=== PATIENT | male | born 1990 | race Two or more races ===

== ENCOUNTER 2018-01-20 19:29 | Inpatient (IN) | payer OTHER ==
[2018-01-20 21:40] LABS: ADD MAN DIFF? NO
[2018-01-20] MEDS: METHYLPREDNISOLONE 125 MG INJ IV (21:40)
[2018-01-20] MEDS: SOD CHLORIDE 0.9% 500 ML IV (21:40)
[2018-01-20 21:45] LABS: WHITE BLOOD COUNT 5.2 10^3/ul (4.8-10.8)
[2018-01-20 21:45] LABS: BASOPHILS % 0.6 % (0.0-2.0); EOSINOPHILS # 0.4 10^3/ul (0.0-0.5); EOSINOPHILS % 8.3 % (0.0-7.0); HEMATOCRIT 50.2 % (42.0-52.0); LYMPHOCYTES # 2.4 10^3/ul (0.8-2.9); LYMPHOCYTES % 46.2 % (15.0-51.0); MEAN CORPUSCULAR HGB CONC 33.9 g/dl (32.0-37.0); MEAN CORPUSCULAR VOLUME 94.5 fl (82.0-101.0); MEAN PLATELET VOLUME 11.4 fl (7.4-10.4); MONOCYTE # 0.5 10^3/ul (0.3-0.9); MONOCYTES % 9.8 % (0.0-11.0); NEUTROPHIL # 1.8 10^3/ul (1.6-7.5); NEUTROPHILS % 34.9 % (39.0-77.0); PLATELET COUNT 210 10^3/UL (140-415); RED BLOOD COUNT 5.31 10^6/ul (4.70-6.10); RED CELL DISTRIBUTION WIDTH 12.5 % (11.5-14.5)
[2018-01-20 21:59] LABS: ALANINE AMINOTRANSFERASE 17 IU/L (13-69); ALBUMIN 4.7 g/dl (3.3-4.9); ALBUMIN/GLOBULIN RATIO 1.06; ALKALINE PHOSPHATASE 98 IU/L (42-121); ANION GAP 11 (5-13); ASPARTATE AMINO TRANSFERASE 27 IU/L (15-46); BILIRUBIN,INDIRECT 0.6 mg/dl (0-1.1); BILIRUBIN,TOTAL 0.6 mg/dl (0.2-1.3); BLOOD UREA NITROGEN 21 mg/dl (7-20); CALCIUM 9.6 mg/dl (8.4-10.2); CARBON DIOXIDE 29 mmol/L (21-31); CHLORIDE 101 mmol/L (97-110); CREATININE 0.78 mg/dl (0.61-1.24); Estimated GFR > 60 mL/min (>60); GLUCOSE 90 mg/dl (70-220); LIPASE 118 U/L (23-300); POTASSIUM 3.9 mmol/L (3.5-5.1); SODIUM 141 mmol/L (135-144); TOTAL PROTEIN 9.1 g/dl (6.1-8.1)
[2018-01-20] MEDS ORDERED: DOCUSATE SODIUM 100 MG CAP PO (22:00)
[2018-01-20] MEDS ORDERED: NACL 0.9% 3 ML SYG IV (22:00)
[2018-01-20] MEDS ORDERED: BISACODYL (EC) 5 MG TAB PO (22:00)
[2018-01-20] MEDS: PANTOPRAZOLE (EC) 40 MG TAB PO (22:00)
[2018-01-20] MEDS ORDERED: ONDANSETRON 4 MG INJ IV (22:00)
[2018-01-20] MEDS: METHYLPRED. NA SUCC 1,000 MG in DEXTROSE 5% 50 ML IVPB (22:59)
[2018-01-21] MEDS: PANTOPRAZOLE (EC) 40 MG TAB PO (05:44)
[2018-01-21 06:21] LABS: ABNORMAL IP MESSAGE 1; HEMATOCRIT 44.9 % (42.0-52.0); HEMOGLOBIN 15.3 g/dl (14.0-18.0); MEAN CORPUSCULAR HEMOGLOBIN 31.9 pg (29.0-33.0); MEAN CORPUSCULAR HGB CONC 34.1 g/dl (32.0-37.0); MEAN CORPUSCULAR VOLUME 93.5 fl (82.0-101.0); MEAN PLATELET VOLUME 11.6 fl (7.4-10.4); PLATELET COUNT 181 10^3/UL (140-415); POSITIVE DIFF @See below; RED CELL DISTRIBUTION WIDTH 12.5 % (11.5-14.5)
[2018-01-21 06:21] LABS: WHITE BLOOD COUNT 2.6 10^3/ul (4.8-10.8)
[2018-01-21 06:25] LABS: ADD MAN DIFF? YES
[2018-01-21 07:05] LABS: ALANINE AMINOTRANSFERASE 20 IU/L (13-69); ALBUMIN 4.2 g/dl (3.3-4.9); ALBUMIN/GLOBULIN RATIO 1.23; ALKALINE PHOSPHATASE 79 IU/L (42-121); ANION GAP 8 (5-13); ASPARTATE AMINO TRANSFERASE 23 IU/L (15-46); BILIRUBIN,INDIRECT 0.5 mg/dl (0-1.1); BILIRUBIN,TOTAL 0.5 mg/dl (0.2-1.3); BLOOD UREA NITROGEN 14 mg/dl (7-20); CALCIUM 9.6 mg/dl (8.4-10.2); CARBON DIOXIDE 28 mmol/L (21-31); CHLORIDE 104 mmol/L (97-110); CHOL/HDL RATIO 4.8 RATIO; CHOLESTEROL 156 mg/dl (100-200); CREATININE 0.72 mg/dl (0.61-1.24); Estimated GFR > 60 mL/min (>60); GLUCOSE 148 mg/dl (70-220); HDL CHOLESTEROL 32 mg/dl (28-63); LDL CHOLESTEROL,CALCULATED 120 mg/dl; POTASSIUM 5.5 mmol/L (3.5-5.1); SODIUM 140 mmol/L (135-144); TOTAL PROTEIN 7.6 g/dl (6.1-8.1); TRIGLYCERIDES 18 mg/dl (0-149)
[2018-01-21 08:16] LABS: THYROID STIMULATING HORMONE 0.281 MIU/L (0.465-4.680)
[2018-01-21] MEDS: METHYLPRED. NA SUCC 1,000 MG in DEXTROSE 5% 50 ML IVPB (08:37)
[2018-01-21] MEDS: ENOXAPARIN 40 MG/0.4 ML SYG SC (08:55)
[2018-01-21 10:14] LABS: BAND NEUTROPHILS #M 0.3 10^3/ul (0.0-0.6); BAND NEUTROPHILS % (M) 15 % (0-4); BURR CELLS 1+ (0-0); LYMPHOCYTES #M 0.3 10^3/ul (0.8-2.9); LYMPHOCYTES % (M) 13 % (15-51); MONOCYTES % (M) 3 % (0-11); PLATELET ESTIMATE NORMAL; POLYCHROMASIA 1+ (0-0); REACTIVE LYMPHOCYTES% (M) 1 % (0-0); SEG NEUT #M 1.8 10^3/ul (1.6-7.5); SEGMENTED NEUTROPHILS (M) % 68 % (39-77); SMUDGE%M 3 % (0-0)
[2018-01-21 11:16] LABS: HEMOGLOBIN A1C 4.8 % (0-5.9)
[2018-01-21 12:03] LABS: FREE T4 (FREE THYROXINE) 1.26 ng/dl (0.79-2.35)
[2018-01-21] MEDS: ACETAMINOPHEN 325 MG TAB PO (13:43)
[2018-01-21] MEDS: DOCUSATE SODIUM 100 MG CAP PO (21:39)
[2018-01-21] MEDS: LORAZEPAM 2 MG INJ IV (23:57)
[2018-01-22] MEDS: PANTOPRAZOLE (EC) 40 MG TAB PO (05:58)
[2018-01-22 06:31] LABS: ADD MAN DIFF? NO
[2018-01-22 06:38] LABS: BASOPHILS % 0.1 % (0.0-2.0); HEMATOCRIT 42.9 % (42.0-52.0); HEMOGLOBIN 14.5 g/dl (14.0-18.0); LYMPHOCYTES # 0.9 10^3/ul (0.8-2.9); LYMPHOCYTES % 10.5 % (15.0-51.0); MEAN CORPUSCULAR HEMOGLOBIN 32.1 pg (29.0-33.0); MEAN CORPUSCULAR HGB CONC 33.8 g/dl (32.0-37.0); MEAN CORPUSCULAR VOLUME 94.9 fl (82.0-101.0); MEAN PLATELET VOLUME 11.8 fl (7.4-10.4); MONOCYTE # 1.1 10^3/ul (0.3-0.9); MONOCYTES % 12.3 % (0.0-11.0); NEUTROPHIL # 6.7 10^3/ul (1.6-7.5); NEUTROPHILS % 76.6 % (39.0-77.0); PLATELET COUNT 185 10^3/UL (140-415); RED BLOOD COUNT 4.52 10^6/ul (4.70-6.10); RED CELL DISTRIBUTION WIDTH 12.7 % (11.5-14.5)
[2018-01-22 06:38] LABS: WHITE BLOOD COUNT 8.7 10^3/ul (4.8-10.8)
[2018-01-22 07:15] LABS: ANION GAP 8 (5-13); BLOOD UREA NITROGEN 21 mg/dl (7-20); CALCIUM 9.5 mg/dl (8.4-10.2); CARBON DIOXIDE 27 mmol/L (21-31); CHLORIDE 105 mmol/L (97-110); CREATININE 0.73 mg/dl (0.61-1.24); Estimated GFR > 60 mL/min (>60); GLUCOSE 118 mg/dl (70-220); MAGNESIUM 2.1 mg/dl (1.7-2.5); POTASSIUM 4.3 mmol/L (3.5-5.1); SODIUM 140 mmol/L (135-144)
[2018-01-22] MEDS: DOCUSATE SODIUM 100 MG CAP PO ×2 (09:11→22:09)
[2018-01-22] MEDS: ENOXAPARIN 40 MG/0.4 ML SYG SC (09:55)
[2018-01-22 10:30] LABS: ADD UMIC NO; UR ASCORBIC ACID 40 mg/dL (NEGATIVE); UR BILIRUBIN (Dip) NEGATIVE (NEGATIVE); UR BLOOD (Dip) NEGATIVE (NEGATIVE); UR CLARITY CLEAR (CLEAR); UR COLOR YELLOW (YELLOW); UR GLUCOSE (Dip) NEGATIVE (NEGATIVE); UR KETONES (Dip) NEGATIVE (NEGATIVE); UR LEUKOCYTE ESTERASE (Dip) NEGATIVE Leu/ul (NEGATIVE); UR NITRITE (Dip) NEGATIVE (NEGATIVE); UR SPECIFIC GRAVITY (Dip) 1.033 (1.003-1.030); UR TOTAL PROTEIN (Dip) NEGATIVE (NEGATIVE); UR UROBILINOGEN (Dip) NEGATIVE (NEGATIVE)
[2018-01-22] MEDS: METHYLPRED. NA SUCC 1,000 MG in DEXTROSE 5% 50 ML IVPB (10:59)
[2018-01-22 11:09] LABS: AMPHETAMINE/METHAMPHETAMINE NEGATIVE (NEGATIVE); BARBITURATES NEGATIVE (NEGATIVE); BENZODIAZEPINES NEGATIVE (NEGATIVE); CANNABINOIDS NEGATIVE (NEGATIVE); COCAINE NEGATIVE (NEGATIVE); OPIATES NEGATIVE (NEGATIVE)
[2018-01-23] MEDS: PANTOPRAZOLE (EC) 40 MG TAB PO (05:41)
[2018-01-23 06:57] LABS: ADD MAN DIFF? NO
[2018-01-23 07:07] LABS: HEMOGLOBIN 14.8 g/dl (14.0-18.0); LYMPHOCYTES # 0.7 10^3/ul (0.8-2.9); MEAN CORPUSCULAR HEMOGLOBIN 31.8 pg (29.0-33.0); MEAN CORPUSCULAR HGB CONC 33.6 g/dl (32.0-37.0); MEAN CORPUSCULAR VOLUME 94.4 fl (82.0-101.0); MONOCYTE # 0.8 10^3/ul (0.3-0.9); MONOCYTES % 9.1 % (0.0-11.0); NEUTROPHIL # 7.4 10^3/ul (1.6-7.5); NEUTROPHILS % 82.5 % (39.0-77.0); PLATELET COUNT 186 10^3/UL (140-415); RED BLOOD COUNT 4.66 10^6/ul (4.70-6.10); RED CELL DISTRIBUTION WIDTH 12.5 % (11.5-14.5)
[2018-01-23 07:33] LABS: ANION GAP 11 (5-13); BLOOD UREA NITROGEN 23 mg/dl (7-20); CALCIUM 9.4 mg/dl (8.4-10.2); CARBON DIOXIDE 28 mmol/L (21-31); CHLORIDE 101 mmol/L (97-110); CREATININE 0.75 mg/dl (0.61-1.24); Estimated GFR > 60 mL/min (>60); GLUCOSE 111 mg/dl (70-220); POTASSIUM 4.1 mmol/L (3.5-5.1); SODIUM 140 mmol/L (135-144)
[2018-01-23] MEDS: DOCUSATE SODIUM 100 MG CAP PO ×2 (09:11→21:09)
[2018-01-23] MEDS: METHYLPRED. NA SUCC 1,000 MG in DEXTROSE 5% 50 ML IVPB (09:11)
[2018-01-23] MEDS: ENOXAPARIN 40 MG/0.4 ML SYG SC (09:25)
[2018-01-23] MEDS: ACETAMINOPHEN 325 MG TAB PO (17:05)
[2018-01-23] MEDS: HYDROCODONE/APAP (5/325) TAB PO (21:55)
[2018-01-24] MEDS: PANTOPRAZOLE (EC) 40 MG TAB PO (05:34)
[2018-01-24] MEDS: METHYLPRED. NA SUCC 1,000 MG in DEXTROSE 5% 50 ML IVPB (09:59)
[2018-01-24] MEDS: ENOXAPARIN 40 MG/0.4 ML SYG SC (10:03)
[2018-01-24] MEDS: ACETAMINOPHEN 325 MG TAB PO (10:04)
[2018-01-24] MEDS: DOCUSATE SODIUM 100 MG CAP PO ×2 (10:05→21:49)
[2018-01-24] MEDS: CHOLECALCIFEROL 1,000 UNIT TAB PO (13:20)
[2018-01-25] MEDS: PANTOPRAZOLE (EC) 40 MG TAB PO (05:24)
[2018-01-25 05:30] LABS: ADD MAN DIFF? NO
[2018-01-25 05:38] LABS: WHITE BLOOD COUNT 7.3 10^3/ul (4.8-10.8)
[2018-01-25 05:38] LABS: HEMATOCRIT 43.4 % (42.0-52.0); HEMOGLOBIN 14.7 g/dl (14.0-18.0); LYMPHOCYTES # 1.5 10^3/ul (0.8-2.9); LYMPHOCYTES % 20.1 % (15.0-51.0); MEAN CORPUSCULAR HGB CONC 33.9 g/dl (32.0-37.0); MEAN CORPUSCULAR VOLUME 94.6 fl (82.0-101.0); MEAN PLATELET VOLUME 12.1 fl (7.4-10.4); MONOCYTE # 0.8 10^3/ul (0.3-0.9); MONOCYTES % 10.9 % (0.0-11.0); NEUTROPHILS % 68.5 % (39.0-77.0); PLATELET COUNT 173 10^3/UL (140-415); RED BLOOD COUNT 4.59 10^6/ul (4.70-6.10); RED CELL DISTRIBUTION WIDTH 12.5 % (11.5-14.5)
[2018-01-25 05:56] LABS: PHOSPHORUS 4.1 mg/dl (2.5-4.9)
[2018-01-25 05:56] LABS: MAGNESIUM 2.1 mg/dl (1.7-2.5)
[2018-01-25 06:04] LABS: ANION GAP 8 (5-13); BLOOD UREA NITROGEN 24 mg/dl (7-20); CALCIUM 9.2 mg/dl (8.4-10.2); CARBON DIOXIDE 31 mmol/L (21-31); CHLORIDE 102 mmol/L (97-110); CREATININE 0.68 mg/dl (0.61-1.24); Estimated GFR > 60 mL/min (>60); GLUCOSE 90 mg/dl (70-220); POTASSIUM 4.1 mmol/L (3.5-5.1); SODIUM 141 mmol/L (135-144)
[2018-01-25] MEDS: DOCUSATE SODIUM 100 MG CAP PO ×2 (08:43→20:26)
[2018-01-25] MEDS: CHOLECALCIFEROL 1,000 UNIT TAB PO (08:43)
[2018-01-25] MEDS: ENOXAPARIN 40 MG/0.4 ML SYG SC (08:47)
[2018-01-26] MEDS: ACETAMINOPHEN 325 MG TAB PO (02:01)
[2018-01-26] MEDS: PANTOPRAZOLE (EC) 40 MG TAB PO (06:37)
[2018-01-26] MEDS: DOCUSATE SODIUM 100 MG CAP PO (08:54)
[2018-01-26] MEDS: CHOLECALCIFEROL 1,000 UNIT TAB PO (08:54)
[2018-01-26] MEDS: ENOXAPARIN 40 MG/0.4 ML SYG SC (08:57)
[2018-01-26] MEDS ORDERED: ERGOCALCIFEROL (8000 UNITS/ML PO SYG) PO (12:00)
[2018-01-26] MEDS: ERGOCALCIFEROL 50,000 UNIT CAP PO (13:48)
[2018-01-26] MEDS: HYDROCODONE/APAP (5/325) TAB PO (13:49)
== END 2018-01-26 18:45 | disposition home or self-care (01) | DRG 60 ==
LOC: TEL 21:50 → MS1 01-25 22:28 → E/R 19:29
DX: G35 Multiple sclerosis (principal); E55.9 Vitamin D deficiency, unspecified; M25.831 Other specified joint disorders, right wrist
CPT/HCPCS: 36415; 70450; 70553; 71046; 73110-RT; 73221; 73630-50; 73718; 80048; 80053; 80061; 80307; 81003; 82306; 83036; 83690; 83735; 84100; 84439; 84443; 85025; 93005; 96374; 97161; 99285-25; G0378